=== PATIENT | female | born 1960 | race Caucasian/White ===

== ENCOUNTER 2019-11-25 09:01 | Observation (INO) | payer OTHER, BC ==
[~2019-11-25] VITALS: Ht 154.9 cm; Wt 81.2 kg
[2019-11-25] MEDS ORDERED: LOSA25TA25 PO (09:10)
--- NOTE | 2019-11-25 09:39 | NUR ---
AMBULATORY FROM [facility] W/ . C/O L CHEST PAIN "MY BREAST HURTS" ALSO PAIN DOWN L ARM. DENIES SOB. PAIN X2 WKS. A&OX4 GCS 15. HX MITRAL VALVE PROLAPSE, HEART RATE IRREG, PVCS. VSS. PLAN LABS/CXR. JASMIN LEACH IN ROOM FOR EVAL. LUNGS CTAB.
[2019-11-25 09:45] LABS: BASOPHILS # (AUTO) 0.07 x10^3/uL (0-0.1); BASOPHILS % (AUTO) 1 % (0-1); EOSINOPHILS # (AUTO) 0.08 x10^3/uL (0-0.4); EOSINOPHILS % (AUTO) 1 % (1-7); LYMPHOCYTES # (AUTO) 2.61 x10^3/uL (1-3.4); LYMPHOCYTES % (AUTO) 43 % (22-44); MD NO; MEAN CORPUSCULAR HEMOGLOBIN 29.9 pg (27.0-34.8); MEAN CORPUSCULAR HGB CONC 33.8 g/dL (32.4-35.8); MEAN CORPUSCULAR VOLUME 88.7 fL (80-100); MEAN PLATELET VOLUME 8.8 fL (7.4-10.4); MONOCYTES # (AUTO) 0.39 x10^3/uL (0.2-0.8); MONOCYTES % (AUTO) 6 % (2-9); NEUTROPHILS # (AUTO) 2.95 x10^3/uL (1.8-6.8); NEUTROPHILS % (AUTO) 48 % (42-75); PLATELET COUNT 217 x10^3/uL (130-400); RED BLOOD COUNT 4.86 x10^6/uL (3.82-5.3); RED CELL DISTRIBUTION WIDTH 12.4 % (9.6-15.2)
[2019-11-25 09:53] LABS: ALANINE AMINOTRANSFERASE 17 U/L (12-78); ALBUMIN 3.9 g/dL (3.4-5.0); ANION GAP 8 mmol/L (5-15); CALCIUM 8.8 mg/dL (8.5-10.1); CHLORIDE 107 mmol/L (98-107); CREATININE 0.82 mg/dL (0.55-1.02)
--- NOTE | 2019-11-25 09:55 | NUR ---
DENEIS PAIN AT THIS TIME. INTERMITTENT L CHEST PAIN, UNABLE TO DESCRIBE.
[2019-11-25 09:57] LABS: ALKALINE PHOSPHATASE 69 U/L (45-117); BILIRUBIN,TOTAL 0.6 mg/dL (0.2-1.0); TOTAL PROTEIN 7.4 g/dL (6.4-8.2)
--- NOTE | 2019-11-25 10:01 | NUR ---
cxr/labs wnl. recheck. as
--- NOTE | 2019-11-25 10:05 | NUR ---
trop pending. as
[2019-11-25 10:23] LABS: TROPONIN I < 0.015 ng/mL (0.000-0.045)
[2019-11-25] MEDS ORDERED: ENOXAPARIN 40 MG/0.4 ML ONE (11:12)
--- NOTE | 2019-11-25 11:28 | NUR ---
report to durga weinberg. as
[2019-11-25] MEDS: ENOXAPARIN 40 MG/0.4 ML SQ SCH (11:30)
[2019-11-25] MEDS ORDERED: morphine SULFATE 10 MG/ML, 1ML IVPush PRN (11:30)
[2019-11-25] MEDS ORDERED: ACETAMINOPHEN 325 MG TABLET PO PRN (11:30)
[2019-11-25] MEDS ORDERED: hydrALAzine 20 MG/ML, 1ML IVPush PRN (11:30)
[2019-11-25 11:46] VITALS: BP 140/90
[2019-11-25 13:35] VITALS: BP 121/71
[2019-11-25 19:45] LABS: TROPONIN I < 0.015 ng/mL (0.000-0.045)
[2019-11-25 19:58] VITALS: BP 105/69
[2019-11-25 20:36] VITALS: BP 114/69
[2019-11-25] MEDS ORDERED: LOSARTAN 25MG TABLET PO SCH (21:00)
[2019-11-26 01:35] LABS: BASOPHILS # (AUTO) 0.04 x10^3/uL (0-0.1); BASOPHILS % (AUTO) 1 % (0-1); EOSINOPHILS # (AUTO) 0.16 x10^3/uL (0-0.4); EOSINOPHILS % (AUTO) 3 % (1-7); LYMPHOCYTES # (AUTO) 3.02 x10^3/uL (1-3.4); LYMPHOCYTES % (AUTO) 49 % (22-44); MD NO; MEAN CORPUSCULAR HGB CONC 33.5 g/dL (32.4-35.8); MEAN CORPUSCULAR VOLUME 89.5 fL (80-100); MEAN PLATELET VOLUME 8.9 fL (7.4-10.4); MONOCYTES # (AUTO) 0.53 x10^3/uL (0.2-0.8); MONOCYTES % (AUTO) 9 % (2-9); NEUTROPHILS # (AUTO) 2.41 x10^3/uL (1.8-6.8); NEUTROPHILS % (AUTO) 39 % (42-75); PLATELET COUNT 206 x10^3/uL (130-400); RED BLOOD COUNT 4.81 x10^6/uL (3.82-5.3); RED CELL DISTRIBUTION WIDTH 12.6 % (9.6-15.2)
[2019-11-26 01:43] LABS: ANION GAP 5 mmol/L (5-15); CALCIUM 8.8 mg/dL (8.5-10.1); CHLORIDE 106 mmol/L (98-107); CHOLESTEROL, TOTAL 252 mg/dL (140-239); CREATININE 0.79 mg/dL (0.55-1.02); TRIGLYCERIDES 113 mg/dL (50-200); VLDL CHOLESTEROL 23 mg/dL (0-25)
[2019-11-26 01:45] LABS: CHOL/HDL RATIO 3.2; HDL CHOL % 31 % (28-40); HDL CHOLESTEROL (DIRECT) 78 mg/dL (40-60); LDL CHOLESTEROL,CALCULATED 151 mg/dL (54-169); LDL/HDL RATIO 1.9 (0.5-3.0)
[2019-11-26 01:49] LABS: TROPONIN I < 0.015 ng/mL (0.000-0.045)
[2019-11-26 02:54] VITALS: BP 121/71
[2019-11-26 07:14] VITALS: BP 136/87
[2019-11-26] MEDS ORDERED: LOSARTAN 25MG TABLET PO SCH (09:00)
[2019-11-26] MEDS ORDERED: REGADENOSON 0.4 MG/5 ML SYRINGE ONE (09:01)
[2019-11-26] MEDS: ENOXAPARIN 40 MG/0.4 ML SQ SCH (11:27)
[2019-11-26 12:43] VITALS: BP 109/77
== END 2019-11-26 14:44 | disposition home or self-care (01) ==
LOC: ED 09:49 → EDIP 11:19 → INTOOBSV 11:19 → 5SO 11:44 → DCLOUNGE 11-26 14:28
PROVIDERS: ADMIT Internal Medicine Infectious Disease; ATTEND Hospitalist
DX: I20.0 Unstable angina (principal); I10 Essential (primary) hypertension; Z79.899 Other long term (current) drug therapy; I34.1 Nonrheumatic mitral (valve) prolapse; Z88.0 Allergy status to penicillin; Z88.1 Allergy status to other antibiotic agents; Z88.6 Allergy status to analgesic agent; I49.3 Ventricular premature depolarization
CPT/HCPCS: 36415; 71045; 78452; 80048; 80053; 80061; 83735; 84484; 85025; 93005; 93017; 93306; 96372; 99284; A9502; C9898; G0378; J1650; J2785; 99285